=== PATIENT | female | born 1990 | race Caucasian/White ===

== ENCOUNTER 2024-12-20 17:03 | Emergency (ER) | payer OTHER ==
[~2024-12-20] VITALS: Ht 154.9 cm; Wt 89.1 kg
[2024-12-20 17:06] VITALS: O2SAT 97
[2024-12-20 17:11] VITALS: BP 133/94; PULSE 99; RESP 18; TEMP 37.2; O2SAT 100
[2024-12-20 17:44] LABS: BASOPHILS % 0.3 % (0.0-2.0); EOSINOPHILS % 0.6 % (0.0-5.0); HEMATOCRIT. 43.1 % (36.0-48.0); HEMOGLOBIN. 14.4 g/dL (12.0-16.0); LYMPHOCYTES % 16.6 % (20.0-50.0); MEAN CORPUSCULAR HEMOGLOBIN 28.2 pg (28.0-32.0); MEAN CORPUSCULAR HGB CONC 33.5 g/dL (31.0-37.0); MEAN CORPUSCULAR VOLUME 84.3 fL (81.0-99.0); MEAN PLATELET VOLUME 8.5 fl (7.4-10.4); MONOCYTES % 7.2 % (2.0-8.0); NEUTROPHILS % 75.3 % (40.0-76.0); PLATELET 292 x1000/uL (130-400); RED BLOOD CELL COUNT 5.12 mill/uL (4.2-5.4); RED CELL DISTRIBUTION WIDTH 11.9 % (11.6-14.6)
[2024-12-20 17:50] LABS: CARBON DIOXIDE 27 mEq/L (21-32); CHLORIDE 100 mEq/L (98-107); POTASSIUM 4.1 mEq/L (3.5-5.1); SODIUM 137 mEq/L (136-145)
[2024-12-20 17:51] LABS: CALCIUM 9.7 mg/dL (8.7-10.4)
[2024-12-20 17:52] LABS: HCG SCREEN NEGATIVE
[2024-12-20 17:55] LABS: CREATININE 1.1 mg/dL (0.6-1.0); GLUCOSE 96 mg/dL (70-105)
[2024-12-20 17:56] LABS: UREA NITROGEN BLOOD 12 mg/dL (9-23)
[2024-12-20 17:57] LABS: ALANINE AMINOTRANSFERASE 26 IU/L (10-49); ALBUMIN 4.7 g/dL (3.2-4.8); ASPARTATE AMINOTRANSFERASE 21 IU/L (<34)
[2024-12-20 17:58] LABS: BILIRUBIN DIRECT 0.2 mg/dL (<=3.0); BILIRUBIN TOTAL 0.9 mg/dL (0.1-1.0); PROTEIN TOTAL 7.9 g/dL (6.0-8.3)
[2024-12-20] MEDS: KETOROLAC 30MG/ML VIAL IM STA (18:58)
[2024-12-20 19:16] LABS: CLARITY URINE CLEAR (CLEAR); COLOR URINE YELLOW (YELLOW); GLUCOSE URINE NEGATIVE (NEGATIVE); KETONES URINE 1+ (NEGATIVE); LEUKOCYTE ESTERASE URINE NEGATIVE (NEGATIVE); NITRITE URINE NEGATIVE (NEGATIVE); OCCULT BLOOD URINE NEGATIVE (NEGATIVE); PROTEIN URINE NEGATIVE (NEGATIVE); UROBILINOGEN URINE 0.2 E.U./dL (0.2-1.0)
== END 2024-12-20 21:09 | disposition home or self-care (01) ==
LOC: ER 17:03
DX: R10.12 Left upper quadrant pain (principal)
CPT/HCPCS: 99285; 74176; 76700; 80076; 80048; 81003; 81025; 84703; 83690; 85025; 36415; 96372; J1885